=== PATIENT | female | born 1955 | race Caucasian/White ===

== ENCOUNTER 2017-07-10 12:09 | Emergency (ER) | payer BC, OTHER ==
[~2017-07-10] VITALS: Ht 165.1 cm; Wt 70.0 kg
[2017-07-10 12:11] VITALS: BP 104/66
[2017-07-10 13:28] LABS: HEMATOCRIT 38.5 % (34.6-47.8); HEMOGLOBIN 13.1 g/dL (11.7-16.4); WHITE BLOOD COUNT 8.4 x10^3/uL (3.4-10)
[2017-07-10] MEDS ORDERED: ONDANSETRON 2MG/ML, 2ML IVPush ONE (13:30)
[2017-07-10] MEDS ORDERED: MORPHINE SULFATE 4 MG/ML, 1ML IVPush PRN (13:30)
[2017-07-10] MEDS ORDERED: SODIUM CHLORIDE 0.9% 1,000ML IVBOLUS ONE (13:30)
[2017-07-10] MEDS ORDERED: FAMOTIDINE 20 MG/2 ML IVP ONE (13:30)
[2017-07-10 13:39] LABS: ASPARTATE AMINO TRANSFERASE 18 U/L (15-37); BLOOD UREA NITROGEN 21 mg/dL (7-18)
[2017-07-10] MEDS ORDERED: FAMOTIDINE 20 MG/2 ML ONE (13:48)
[2017-07-10] MEDS ORDERED: MORPHINE SULFATE 4 MG/ML, 1ML ONE (13:48)
[2017-07-10] MEDS ORDERED: ONDANSETRON 2MG/ML, 2ML ONE (13:48)
== END 2017-07-10 16:28 | disposition home or self-care (01) ==
LOC: ED 15:22
DX: N20.2 Calculus of kidney with calculus of ureter (principal); R10.12 Left upper quadrant pain
CPT/HCPCS: 36415; 74176; 76700; 80053; 81001; 83690; 85025; 99285